=== PATIENT | male | born 1985 | race Caucasian/White ===

== ENCOUNTER 2017-12-03 07:23 | Emergency (ER) | payer SELFPAY ==
[~2017-12-03] VITALS: Ht 172.7 cm; Wt 77.1 kg
[2017-12-03] MEDS ORDERED: LORAZEPAM INJ 2 MG/ML VIAL IVP ONE (07:30)
--- NOTE | 2017-12-03 07:30 | NUR ---
BIBRA FROM [address] DT SEIZURE ACTIVITY, UNWITNESSED, UNKNOWN DURATION, PATIENT IS AWAKE AND ALERT. PATIENT NOT IN DISTRESS. VSS. PT HAS NO HX OF SEIZURE
[2017-12-03] MEDS ORDERED: LORAZEPAM INJ 2 MG/ML VIAL ONE (07:38)
[2017-12-03 07:56] LABS: EOSINOPHILS % (AUTO) 1.1 % (0.0-6.0); HEMATOCRIT 41 % (39-51); HEMOGLOBIN 13.8 g/dL (13.5-17.5); LYMPHOCYTES # (AUTO) 0.7 /CMM (0.8-4.8); LYMPHOCYTES % (AUTO) 6.2 % (20.0-44.0); MEAN CORPUSCULAR HEMOGLOBIN 32 PG (26.0-33.0); MEAN CORPUSCULAR HGB CONC 34 g/dl (31.0-36.0); MEAN CORPUSCULAR VOLUME 94 fL (80-96); MONOCYTES # (AUTO) 0.5 /CMM (0.1-1.30); MONOCYTES % (AUTO) 4.8 % (2.0-12.0); NEUTROPHILS # (AUTO) 9.6 /CMM (1.8-8.9); NEUTROPHILS % (AUTO) 87.9 % (43.0-81.0); PLATELET COUNT (AUTO) 248 /CMM (150-450); RDW COEFFICIENT OF VARIATION 12.4 (11.5-15.0); RED BLOOD CELL COUNT(AUTO) 4.32 MIL/uL (4.5-6.0); WHITE BLOOD COUNT (AUTO) 10.9 K/uL (4.3-11.0)
[2017-12-03 08:09] LABS: CALCIUM, SERUM 8.6 mg/dL (8.5-10.1); CREATININE 1.1 mg/dL (0.6-1.3); POTASSIUM 4.2 mmol/L (3.5-5.1)
[2017-12-03 08:37] VITALS: BP 128/86
--- NOTE | 2017-12-03 08:38 | NUR ---
Patient discharged to home in stable condition. Written and verbal after care instructions given. Patient verbalizes understanding of instruction.IV removed. Catheter intact and site benign. Pressure and 4x4 applied to site. No bleeding noted.
== END 2017-12-03 08:39 | disposition home or self-care (01) ==
LOC: ER 07:25
DX: R56.9 Unspecified convulsions (principal); Z88.6 Allergy status to analgesic agent
CPT/HCPCS: 36415; 70450-TC; 80048-TC; 85025-TC; A4606; J2060; Z7610